=== PATIENT | male | born 1955 | race Two or more races ===

== ENCOUNTER 2024-10-21 08:58 | Inpatient (IN) | payer MEDICARE, MEDICAID ==
[~2024-10-21] VITALS: Ht 180.3 cm; Wt 105.2 kg
[2024-10-21] MEDS ORDERED: LIDOCAINE 2%-EPI 1:100,000 30 ML VIAL ONE (13:03)
[2024-10-21] MEDS ORDERED: dexaMETHasone SOD PHOSPHATE 1 ML ONE (13:03)
[2024-10-21] MEDS ORDERED: VANCOMYCIN 1 GM VIAL ONE ×2 (13:03→14:03)
[2024-10-21] MEDS ORDERED: FENTANYL PF 100MCG/2ML AMPUL ONE (14:59)
[2024-10-21 16:00] VITALS: BP 154/94; TEMP 98.2; O2SAT 97
[2024-10-21 16:15] VITALS: BP 156/88; TEMP 98.2; O2SAT 97
[2024-10-21 16:30] VITALS: BP 148/82; TEMP 98.3; O2SAT 96
[2024-10-21] MEDS ORDERED: ONDANSETRON 4 MG TAB.RAPDIS SL PRN (16:30)
[2024-10-21] MEDS ORDERED: ACETAMINOPHEN 325 MG TABLET PO PRN ×2 (16:30→17:00)
[2024-10-21] MEDS ORDERED: MAG HYDROX/AL HYDROX/SIMETH 30 ML UDC PO PRN (16:30)
[2024-10-21] MEDS ORDERED: MAGNESIUM HYDROXIDE 30 ML UDC PO PRN (16:30)
[2024-10-21] MEDS ORDERED: Z GUARD REMEDY 4 OZ OINT TP PRN (16:30)
[2024-10-21] MEDS: HYDROMORPHONE INJ 2 MG/ML DISP.SYRIN IV PRN (16:52)
[2024-10-21 17:00] VITALS: BP 138/85; TEMP 97.6; O2SAT 96
[2024-10-21] MEDS ORDERED: hydrALAZINE HCL IV 20 MG VIAL IV PRN (17:00)
[2024-10-21] MEDS ORDERED: DEXTROSE 50%-WATER 50 ML DISP.SYRIN IV PRN (17:00)
[2024-10-21] MEDS ORDERED: ONDANSETRON HCL/PF 4 MG/2 ML VIAL IVP PRN (17:00)
[2024-10-21] MEDS ORDERED: PANT40TA49 PO (17:16)
[2024-10-21] MEDS ORDERED: ATOR80TA PO (17:16)
[2024-10-21] MEDS ORDERED: METF-440 PO (17:16)
[2024-10-21] MEDS ORDERED: ASPI-1420 PO (17:16)
[2024-10-21] MEDS: BLOOD SUGAR DIAGNOSTIC 1 EACH STRIP IN SCH (17:32)
[2024-10-21] MEDS: INSULIN REGULAR, HUMAN 100 UNIT/ML 3 ML VIAL SQ PRN (17:42)
[2024-10-21] MEDS: IV NS 0.9% 1,000 ML IV PRN (17:48)
[2024-10-21] MEDS ORDERED: PANTOPRAZOLE 40 MG TABLET.DR PO PRN (18:30)
[2024-10-21 20:00] VITALS: BP_SYST 154; BP_SYST 159; BP_DIAS 92; TEMP 97.5; O2SAT 96; O2SAT 97
[2024-10-22] MEDS: VANCOMYCIN 1 GM in IV D5W 250ml IV SCH (00:53)
[2024-10-22 07:10] LABS: BASOPHILS % (AUTO) 0.2 % (0.0-2.0); HEMATOCRIT 52 % (39-51); HEMOGLOBIN 16.8 g/dL (13.5-17.5); LYMPHOCYTES # (AUTO) 1.6 K/uL (0.8-4.8); LYMPHOCYTES % (AUTO) 12.9 % (20.0-44.0); MEAN CORPUSCULAR HEMOGLOBIN 27 PG (26.0-33.0); MEAN CORPUSCULAR HGB CONC 33 g/dl (31.0-36.0); MEAN CORPUSCULAR VOLUME 82 fL (80-96); MONOCYTES # (AUTO) 0.8 K/uL (0.1-1.30); MONOCYTES % (AUTO) 6.4 % (2.0-12.0); NEUTROPHILS # (AUTO) 9.8 K/uL (1.8-8.9); NEUTROPHILS % (AUTO) 80.5 % (43.0-81.0); PLATELET COUNT (AUTO) 212 K/uL (150-450); RED BLOOD CELL COUNT(AUTO) 6.26 MIL/uL (4.5-6.0); RED CELL DISTRIBUTION WIDTH 15.3 % (11.5-15.0); WHITE BLOOD COUNT (AUTO) 12.2 K/uL (4.3-11.0)
[2024-10-22 07:21] LABS: CALCIUM, SERUM 9.2 mg/dL (8.5-10.1); CREATININE 1.4 mg/dL (0.6-1.3); MAGNESIUM 2.1 mg/dL (1.8-2.4); PHOSPHORUS 3.5 mg/dL (2.5-4.9); POTASSIUM 4.3 mmol/L (3.5-5.1)
[2024-10-22 08:00] VITALS: BP 125/67; TEMP 98.2; O2SAT 95
[2024-10-22] MEDS: ATORVASTATIN 40 MG TABLET PO SCH (08:43)
[2024-10-22] MEDS: METFORMIN 500 MG TABLET PO SCH (08:43)
== END 2024-10-22 12:56 | disposition home or self-care (01) | DRG 908 ==
LOC: DS 08:58 → MED 15:51
PROVIDERS: ADMIT Nurse Practitioner Acute Care; ATTEND Nurse Practitioner Acute Care
PROC: 0NUT07Z Supplement Right Mandible with Autologous Tissue Substitute, Open Approach (ICD-10-PCS; 2024-10-21)
PROC: 0NHV04Z Insertion of Internal Fixation Device into Left Mandible, Open Approach (ICD-10-PCS; 2024-10-21)
PROC: 0N5V0ZZ Destruction of Left Mandible, Open Approach (ICD-10-PCS; 2024-10-21)
PROC: 0N5T0ZZ Destruction of Right Mandible, Open Approach (ICD-10-PCS; 2024-10-21)
PROC: 0NPW04Z Removal of Internal Fixation Device from Facial Bone, Open Approach (ICD-10-PCS; 2024-10-21)
PROC: 0NUV07Z Supplement Left Mandible with Autologous Tissue Substitute, Open Approach (ICD-10-PCS; principal; 2024-10-21 12:30)
DX: T86.831 Bone graft failure (principal); N17.9 Acute kidney failure, unspecified; S02.40CK Maxillary fracture, right side, subsequent encounter for fracture with nonunion; S02.40DK Maxillary fracture, left side, subsequent encounter for fracture with nonunion; T84.69XA Infection and inflammatory reaction due to internal fixation device of other site, initial encounter; M27.2 Inflammatory conditions of jaws; Y83.2 Surgical operation with anastomosis, bypass or graft as the cause of abnormal reaction of the patient, or of later complication, without mention of misadventure at the time of the procedure; I12.9 Hypertensive chronic kidney disease with stage 1 through stage 4 chronic kidney disease, or unspecified chronic kidney disease; E11.22 Type 2 diabetes mellitus with diabetic chronic kidney disease; N18.9 Chronic kidney disease, unspecified; D16.4 Benign neoplasm of bones of skull and face; Y83.8 Other surgical procedures as the cause of abnormal reaction of the patient, or of later complication, without mention of misadventure at the time of the procedure; Y92.009 Unspecified place in unspecified non-institutional (private) residence as the place of occurrence of the external cause
CPT/HCPCS: 36415; 80048-TC; 82962-TC; 83735-TC; 84100-TC; 85025-TC; 87081-TC; 88300-TC; 88305-TC; 88311-TC; A4223; A4338; G0378; J0360; J0690; J1100; J1171; J1815; J3010; J3370; J3490; J7030; J7060